=== PATIENT | male | born 2000 | race Caucasian/White ===

== ENCOUNTER 2022-10-19 19:52 | Outpatient (REF) | payer MEDICAID, SELFPAY ==
[2022-10-19 20:24] LABS: Bilirubin Negative (Negative); Blood Small (Negative); Clarity Clear (Clear); Glucose Negative (Negative); Ketones Negative (Negative); Leukocyte Esterase Negative (Negative); Nitrite Negative (Negative); Specific Gravity 1.025 (1.005-1.025)
[2022-10-19 20:26] LABS: Bacteria Few HPF (Negative); C & S Indicated? No; Casts Negative LPF (Negative); Crystals Moderate Amorphous HPF (Negative); Epithelial Cells Rare HPF (Negative); Mucus Trace (Negative); WBC Negative HPF (0-5)
== END 2022-10-19 19:53 | disposition home or self-care (01) ==
LOC: NCHCN 19:52
PROVIDERS: Visit Provider Nurse Practitioner Family
DX: R31.9 Hematuria, unspecified (principal)
CPT/HCPCS: 81003; 81015